=== PATIENT | male | born 1955 | race Caucasian/White ===

== ENCOUNTER 2024-09-07 14:53 | Emergency (ER) | payer MEDICARE, SELFPAY ==
[2024-09-07] VITALS (22 sets, daily range): BP systolic 93–148; BP diastolic 63–94; PULSE 76–105; RESP 16–18; TEMP 36.6–37.1; O2SAT 90–98
--- NOTE | ~2024-09-07 | CT_ITS ---
EXAMINATION: CT abdomen pelvis w con DATE: 09/07/2024 16:15 INDICATION: Rectal bleeding. Diarrhea. TECHNIQUE: Computed tomography (CT) of the abdomen and pelvis was performed with 100 mL Omnipaque 350 intravenous contrast. Automated exposure control and iterative reconstruction technique were employe d. The dose-length product was 829.47 mGy-cm. COMPARISON: None. FINDINGS: The visualized portions of lung bases demonstrate emphysema and minimal atelectasis. No ple ural effusion. The heart size is normal. No pericardial effusion. There are coronary artery calcifica tions. The liver, gallbladder, spleen, pancreas, adrenal glands, and left kidney are normal. There is a 10 mm cyst in right kidney. There is diverticulosis of the colon without evidence of diverticuliti s. The appendix is normal. The colon is decompressed. There are no dilated loops of bowel. There are no pathologically enlarged lymph nodes. There is no free intraperitoneal fluid. There is a left ingui nal hernia containing fat. There is severe lower lumbar spondylosis. There is mild chronic anterior w edging of T11-L1 vertebral bodies. IMPRESSION: 1. No etiology for the patient's symptoms. Reviewed, dictated and finalized at location A. [employer]IAL MAINTENANCE WORKER
[2024-09-07] MEDS: SODIUM CHLORIDE 0.9% IV 1,000 ML 999 ML IV CONT (15:29)
[2024-09-07 15:36] LABS: Basophils Absolute Auto 0.04 K/mm3 (0.00-0.10); Basophils Percent Auto 0.4 % (0.0-1.0); Eosinophils Absolute Auto 0.21 K/mm3 (0.02-0.50); Eosinophils Percent Auto 2.4 % (1.0-6.0); Hematocrit 44.7 % (37.0-46.0); Hemoglobin 14.6 g/dL (12.4-15.3); Immature Granulocyte Absolute 0.03 K/mm3 (0.00-0.00); Immature Granulocyte Percent A 0.3 % (0.0-0.0); Lymphocytes Absolute Auto 1.54 K/mm3 (1.10-4.50); Lymphocytes Percent Auto 17.3 % (18.0-42.0); Mean Corpuscular HGB Conc 32.7 g/dL (32-36); Mean Corpuscular Hemoglobin 28.9 pg (27.0-31.0); Mean Corpuscular Volume 88.5 fL (78.0-102.0); Mean Platelet Volume 9.2 fl (8.7-11.0); Monocytes Absolute Auto 0.84 K/mm3 (0.10-0.90); Monocytes Percent Auto 9.4 % (2.0-11.0); Neutrophils Absolute Auto 6.23 K/mm3 (1.70-7.20); Neutrophils Percent Auto 70.2 % (50.0-70.0); Platelet Count Result 189 K/mm3 (150-420); Red Blood Count 5.05 M/mm3 (4.70-6.10); Red Cell Distribution Width 15.3 % (11.6-14.4); White Blood Count 8.9 K/mm3 (4.8-10.8)
[2024-09-07 15:37] LABS: Occult Blood Positive (Negative)
[2024-09-07 15:47] LABS: Lipase 33 U/L (16-77); Magnesium 1.8 mg/dL (1.8-2.4)
[2024-09-07 15:52] LABS: Partial Thromboplastin Time 26.3 Sec (23.9-30.70); Prothrombin Time 10.9 Seconds (9.50-12.1)
[2024-09-07 15:53] LABS: Alanine Aminotransferase 38 U/L (16-63); Albumin Level 3.5 g/dL (3.4-5.0); Alkaline Phosphatase 78 U/L (46-116); Ammonia 10 umol/L (11-32); Anion Gap 11 mmol/L (4-12); Aspartate Amino Transferase 20 U/L (15-37); Bilirubin,Total 0.5 mg/dL (0.00-1.00); Blood Urea Nitrogen 19 mg/dL (7-18); Calcium 9.4 mg/dL (8.5-10.1); Carbon Dioxide 27 mmol/L (21-32); Chloride 105 mmol/L (98-108); Estimated CRCL calculation 61 ml/min; Estimated Glomerular Filt Rate > 60; Glucose 123 mg/dL (70-99); Osmolality Calculated 299 mOsm/kg (285-295); Potassium 4.2 mmol/L (3.5-5.1); Sodium 143 mmol/L (136-145)
[2024-09-07 15:59] LABS: Lactic Acid Reflex 1.4 mmol/L (0.4-2.0)
--- NOTE | 2024-09-07 16:11 | ECG_ITS ---
Test Date: 2024-09-07 16:40:32 Measurements Intervals [place] Rate: 87 P: 66 [place]: 141 QRS: 69 QRSD: 90 T: 70 QT: 353 QTc: 427 Interpretive Statements SINUS RHYTHM No previous ECG available for comparison Electronically Signed On 09-08-2024 14:12:53 CLOTH EXAMINER by Pernell Perez M.D.
--- NOTE | 2024-09-07 16:30 | ED_ITS ---
HPI - Abdominal Pain General Chief Complaint: Abdominal Pain Stated Complaint: rectal bleeding Time Seen by Provider: 09/07/24 15:06 Source: patient and family Mode of arrival: ambulatory Limitations: no limitations History of Present Illness HPI narrative: this is a 69-year-old male with a history of hypertension hyperlipidemia COPD and diabetes history of osteoarthritis has been on aspirin and etodolac. Patient presents with rectal bleeding with some diarrhea and crampy abdominal pain. Patient is afebrile vitals are stable there is no nausea or vomiting no chest pain or shortness of breath. Patient states that he was eating out at a restaurant yesterday and this morning had severe diarrhea and subsequent to that had extensive bright red blood per rectum. MD elicited complaint: abdominal pain Pertinent past history: gastrointestinal bleeding Onset (ago): hour(s) Pain Consistency: constant Severity: moderate Quality: cramping Migration to: periumbilical Exacerbating factors: bowel movement Related Data Allergies Allergy/AdvReac Type Severity Reaction Status Date / Time No Known Allergies Allergy Verified 09/07/24 15:03 Review of Systems 2 Review of Systems: All systems reviewed & are unremarkable except as noted in HPI and below PMFSH Past Medical History Medical History Diabetes mellitus HTN (hypertension) Family History Family History Other Cerebrovascular accident Diabetes mellitus Family history of alcoholism Family history of congestive heart failure Family history of lung cancer Family history of malignant neoplasm Hypertension Social History Social History Smoking status: Current every day smoker Alcohol intake: current Exam 2 Const: General: no acute distress and alert Nutritional Appearance: well nourished Orientation/consciousness: patient oriented x3 Limitations: no limitations Neck: Neck: normal visual inspection Chest: Chest palpation & inspection: normal inspection of the chest Resp: Effort & Inspection: normal respiratory effort Auscultation: clear to auscultation bilaterally Cardio: Rate: regular rate Rhythm: regular rhythm GI: GI Palp: Yes Soft to palpation and Yes Tenderness to palpation present (GI) : General: Yes bladder normal to palpation Urinary Catheter: Urinary Catheter: patent and draining Skin: General skin exam: normal color Rashes: no rashes Neuro: General: patient oriented x3 and moves all extremities Extrem: General: normal to inspection and no clubbing, cyanosis or edema Course Course Emergency Course: patient had a episode of bright red blood rectum and concur with stool occult, lower external hemorrhoids noted. Labs unremarkable with an H&H of 14 and 44. The patient did receive IV fluids CT scan performed shows no acute ideology for his rectal bleeding. Vitals are stable with a blood pressure 124/79 heart rate of 105 O2 sats 95% on room air. Vital Signs Vital signs: Vital Signs Temperature 36.6 C 09/07/24 14:55 Pulse Rate 105 H 09/07/24 14:55 Respiratory Rate 18 09/07/24 14:55 Blood Pressure 124/79 09/07/24 14:55 Pulse Oximetry 95 09/07/24 14:55 Oxygen Delivery Room Air 09/07/24 14:55 Temperature 36.6 C 09/07/24 14:55 Pulse Rate 105 H 09/07/24 14:55 Respiratory Rate 18 09/07/24 14:55 Blood Pressure 124/79 09/07/24 14:55 Pulse Oximetry 95 09/07/24 14:55 Oxygen Delivery Room Air 09/07/24 14:55 MDM - Abdominal Pain Lab Data 09/07/24 15:31 09/07/24 15:31 Labs: Lab Results 09/07/24 09/07/24 Range/Units 15:12 15:31 WBC 8.9 (4.8-10.8) K/mm3 RBC 5.05 (4.70-6.10) M/mm3 Hgb 14.6 (12.4-15.3) g/dL Hct 44.7 (37.0-46.0) % MCV 88.5 (78.0-102.0) fL MCH 28.9 (27.0-31.0) pg MCHC 32.7 (32-36) g/dL RDW 15.3 H (11.6-14.4) % Plt Count 189 (150-420) K/mm3 MPV 9.2 (8.7-11.0) fl Immature Gran % (Auto) 0.3 H (0.0-0.0) % Neut % (Auto) 70.2 H (50.0-70.0) % Lymph % (Auto) 17.3 L (18.0-42.0) % [place] % (Auto) 9.4 (2.0-11.0) % Eos % (Auto) 2.4 (1.0-6.0) % Baso % (Auto) 0.4 (0.0-1.0) % Lymph # (Auto) 1.54 (1.10-4.50) K/mm3 [place] # (Auto) 0.84 (0.10-0.90) K/mm3 Eos # (Auto) 0.21 (0.02-0.50) K/mm3 Baso # (Auto) 0.04 (0.00-0.10) K/mm3 Abs Immat Gran (auto) 0.03 H (0.00-0.00) K/mm3 Absolute Neuts (auto) 6.23 (1.70-7.20) K/mm3 Absolute Nucleated RBC 0.00 (0.00-0.00) K/mm3 Nucleated RBC % 0.0 (0-0.0) % PT 10.9 (9.50-12.1) Seconds INR 1.0 APTT 26.3 (23.9-30.70) Sec Sodium 143 (136-145) mmol/L Potassium 4.2 (3.5-5.1) mmol/L Chloride 105 (98-108) mmol/L Carbon Dioxide 27 (21-32) mmol/L Anion Gap 11 (4-12) mmol/L BUN 19 H (7-18) mg/dL Creatinine 1.11 (0.70-1.30) mg/dL Estim Creat Clear Calc 61 ml/min Estimated GFR > 60 (59 - ) Glucose 123 H (70-99) mg/dL Calculated Osmolality 299 H (285-295) mOsm/kg Lactic Acid 1.4 (0.4-2.0) mmol/L Calcium 9.4 (8.5-10.1) mg/dL Magnesium 1.8 (1.8-2.4) mg/dL Total Bilirubin 0.5 (0.00-1.00) mg/dL AST 20 (15-37) U/L ALT 38 (16-63) U/L Alkaline Phosphatase 78 (46-116) U/L Ammonia 10 L (11-32) umol/L Total Protein 7.0 (6.4-8.2) g/dL Albumin 3.5 (3.4-5.0) g/dL Lipase 33 (16-77) U/L Stool Occult Blood Positive A (Negative) Imaging Data Radiologist's impression: ITS Impressions Abdomen/Pelvis CT 09/07/24 16:21 IMPRESSION: 1. No etiology for the patient's symptoms. Critical Care Time Critical Care Time Critical Care Time: No Discharge Plan Discharge Clinical Impression: Rectal bleeding Patient Disposition: Acute Care Hospital Patient Language: Amharic Follow-up/Referrals: Gaviota Marsh MD [Primary Care Provider] -
--- NOTE | 2024-09-07 19:00 | PC.NURSE ---
ASSUMED CARE. REPORT RECEIVED FROM JESSICA HEIN.
--- NOTE | 2024-09-07 19:41 | PC.NURSE ---
PCS AND COBRA FORM SIGNED BY PATIENT, PLACED COPY ON CHART AND MADE COPY FOR EMS. CHART COPIED AND READY FOR EMS
--- NOTE | 2024-09-07 21:33 | PC.NURSE ---
PATIENT AMBULATED WITHOUT DIFFICULTY TO THE BATHROOM. LOADING UP ONTO EMS STRETCHER AFTER GOING TO BATHROOM. STEADY GAIT. A&O X 3. PERSONAL ITEMS GIVEN TO EMS. TRANSFER PACKET WITH COBRA AND PCS FORM GIVEN TO EMS.
== END 2024-09-07 21:35 | disposition short-term general hospital (02) ==
PROVIDERS: Emergency Provider Emergency Medicine; PCP Family Medicine
DX: K62.5 Hemorrhage of anus and rectum (principal); E78.5 Hyperlipidemia, unspecified; J44.9 Chronic obstructive pulmonary disease, unspecified; E11.9 Type 2 diabetes mellitus without complications; I10 Essential (primary) hypertension; F17.200 Nicotine dependence, unspecified, uncomplicated; Z79.82 Long term (current) use of aspirin
CPT/HCPCS: 36415; 74177; 80053; 82140; 82272; 83605; 83690; 83735; 85025; 85610; 85730; 93005; 96360; 99285; J7030; Q9967

== ENCOUNTER 2024-09-07 22:13 | Observation (INO) | payer MEDICARE, SELFPAY ==
--- NOTE | 2024-09-07 22:15 | P.HP_ITS ---
H&P: [facility] History of Present Illness Date/Time: 09/07/24 22:15 Chief Complaint: Diarrhea, Blood in Stool Narrative: 69 y/o M presents here with diarrhea and blood in his stool with PMH of HLD, hypertension, heart valve replacement, and COPD. The patient presented to [facility] on 09/07 for further evaluation of diarrhea and bright red blood in his stool.? He reports that he ate [place] food yester day evening for dinner.? Shortly thereafter he had an episode of large volume diarrhea.? Patient then developed bright red blood in his diarrhea, remained large volume and frequent.? He reports intermittent clots. Denies dark tarry stools.? He approximated that he has gone approximately 15 times in the last 24 hours.? Diarrhea is accompanied by abdominal pain.? He describes the pain as lower abdomen, crampy, non-radiating, intermittent, (duration), and has resolved.? He denies change in urinary output, nausea, vomiting, fever, chills, or body aches. ?The patient reports he had a colonoscopy performed in 2023.? At that time he had hemorrhoids removed.? Previous EGD done within the last 5 years, no significant findings per patient.? The patient reports he is/is not on anticoagulation.? He does take a aspirin daily. Initial VS at presentation: ?97.9? F, HR 105, RR 18, 124/79, and 95% on RA. ED workup showed: ?No leukocytosis, no anemia, normal coags, creatinine 1.11 and GFR >60, glucose 123, calculated osmolality 299, lactic 1.4, and stool occult positive.? CT of the abdomen/pelvis showed no etiology for the patient's symptoms. Review of Systems Review of Systems: All systems reviewed & are unremarkable except as noted in HPI and below [facility] Past Medical History Medical History (Updated 09/07/24 @ 23:01 by Jenifer Springer APRN) Arthritis COPD (chronic obstructive pulmonary disease) HLD (hyperlipidemia) HTN (hypertension) Surgical History Surgical History History of heart valve replacement Family History Family History Other Cerebrovascular accident Diabetes mellitus Family history of alcoholism Family history of congestive heart failure Family history of lung cancer Family history of malignant neoplasm Hypertension Social History Social History Smoking status: Current every day smoker Alcohol intake: current Meds Home Medications and Allergies Home Medications ?Medication ?Instructions ?Recorded ?Confirmed ?Type albuterol sulfate 90 mcg/actuation 2 inh inhalation Q4H PRN shortness 09/07/24 09/07/24 History aerosol inhaler of breath or wheezing amlodipine 5 mg tablet 2.5 mg PO DAILY 09/07/24 09/07/24 History atorvastatin 80 mg tablet 80 mg PO DAILY 09/07/24 09/07/24 History budesonide 160 mcg-glycopyr 9 2 inh inhalation BID 09/07/24 09/07/24 History mcg-formot 4.8 mcg/actuation HFA inhaler (Breztri Aerosphere) etodolac 400 mg tablet 400 mg PO Q12H 09/07/24 09/07/24 History metformin 500 mg tablet 500 mg PO DAILY 09/07/24 09/07/24 History sildenafil (pulm.hypertension) 20 20 mg PO Q24H PRN ED 09/07/24 09/07/24 History mg tablet Allergies Allergy/AdvReac Type Severity Reaction Status Date / Time No Known Allergies Allergy Verified 09/07/24 15:03 Exam Const: General: comfortable and no acute distress Other: , male, nontoxic appearance HENMT: Face/Nose/Sinus: Normal nares present Mouth: Yes moist mucous membranes Eyes: General: appearance normal, both eyes and all related structures Sclera: sclerae normal Pupils: Equal, round and reactive pupils present EOM: EOMs intact bilaterally Resp: Effort & Inspection: normal respiratory effort Auscultation: clear to auscultation bilaterally Cardio: Rate: regular rate Rhythm: regular rhythm Other: S1-S2 present without murmur, rub, ectopy GI: Other: abdomen mildly distended and modestly firm. no tenderness. normal bowel sounds in all quadrants. Bowel movement assessed, keren blood clot with minimal stool. Skin: General skin exam: normal color and no rashes or lesions noted Wounds : no wounds Neuro: Speech: normal speech Motor exam (neuro): 5/5 motor strength present throughout Sensory Exam: normal sensation Other: A/Ox4 Extrem: General: normal to inspection Psych: Mental Status: mental status grossly normal Affect: normal affect Other: good insight and judgement, pleasant Assessment and Plan Assessment and plan (1) Rectal bleeding: Code(s): K62.5 - Hemorrhage of anus and rectum Status: Acute Assessment and Plan: - Hgb 14.6 - stool occult positive - not on anticoagulation.? hold home medication: - CT abd/pelvis: ?No etiology for patient's symptoms - GI consulted, awaiting recs - trend H&H Q4-6 hour - started on pantoprazole IVP - last colonoscopy 2-3 months ago, hemoorhoids removed - last EGD within the last 5 years - monitor hemodynamic stability and telemetry (2) HTN (hypertension): Qualifiers: Hypertension type: primary hypertension Qualified Code(s): I10 - Essential (primary) hypertension Code(s): I10 - Essential (primary) hypertension Status: Acute Assessment and Plan: - chronic, currently 115/56 - continue home medications: amlodipine - monitor Plan Patient states he is not diabetic or prediabetic. On metformin for weight loss. Will check A1C, hypoglycemia protocol in place. Diet: NPO -> Clear liquids GI Prophylaxis: Pantoprazole DVT Prophylaxis: SCDs Lines: Peripheral Code Status: Full code Quality VTE Prophylaxis VTE prophylaxis: mechanical ordered Hospitalist MIPS Advance Care Plan I have confirmed that the patient's Advanced Care Plan is present, code status is documented, or surrogate decision maker is listed in patient medical record.: Yes Medication Reconciliation I have utilized all available resources to obtain, update and review the patients current medications (includes all prescriptions, OTC, herbals, cannabis, and nutritional supplements).: Yes
[2024-09-07 22:36] VITALS: BMI 31.4
[2024-09-07 22:52] VITALS: BP 115/56; PULSE 88; RESP 20; TEMP 36.9; O2SAT 96
[2024-09-07] MEDS: LACTATED RINGERS 1,000 ML 100 ML IV CONT (23:45)
[2024-09-07 23:56] LABS: Hematocrit 41.4 % (42.0-52.0); Hemoglobin 13.4 g/dL (14.0-18.0)
[2024-09-08] VITALS: PULSE 83
[2024-09-08 04:00] VITALS: PULSE 67
[2024-09-08 06:00] VITALS: BP 113/79; PULSE 95; RESP 16; TEMP 36.8; O2SAT 94
[2024-09-08 07:22] LABS: Basophils Absolute Auto 0.1 K/mm3 (0.0-0.1); Basophils Percent Auto 0.9 % (0.2-1.2); Eosinophils Absolute Auto 0.3 K/mm3 (0-0.3); Eosinophils Percent Auto 4.1 % (0-4.4); Hematocrit 42.9 % (42.0-52.0); Hemoglobin 13.5 g/dL (14.0-18.0); Immature Granulocyte Absolute 0.02 K/mm3 (0.00-0.031); Immature Granulocyte Percent A 0.3 % (0-0.5); Lymphocytes Absolute Auto 1.92 K/mm3 (0.9-3.2); Lymphocytes Percent Auto 24.7 % (18.3-44.2); Mean Corpuscular HGB Conc 31.5 g/dl (32-36); Mean Corpuscular Volume 92.1 fl (80-100); Mean Platelet Volume 9.8 fl (7.4-10.4); Monocytes Absolute Auto 0.7 K/mm3 (0.1-0.6); Monocytes Percent Auto 8.4 % (2.6-8.5); Neutrophils Absolute Auto 4.8 K/mm3 (1.3-6.7); Neutrophils Percent Auto 61.6 % (45.5-73.1); Platelet Count Result 164 k/mm3 (150-375); Red Blood Count 4.66 M/mm3 (4.6-6.20); Red Cell Distribution Width 15.5 % (11.5-14.5); White Blood Count 7.8 K/mm3 (4.5-10.0)
[2024-09-08 07:31] LABS: Alanine Aminotransferase 26 U/L (6-50); Albumin Level 3.4 g/dL (3.5-5.1); Alkaline Phosphatase 71 U/L (38-126); Anion Gap 2 mmol/L (4-12); Aspartate Amino Transferase 26 U/L (17-59); Bilirubin,Total 0.7 mg/dL (0.2-1.3); Blood Urea Nitrogen 14 mg/dL (9-20); Calcium 8.9 mg/dL (8.4-10.2); Carbon Dioxide 32 mmol/L (22-30); Chloride 106 mmol/L (98-107); Estimated CRCL calculation 76 ml/min; Estimated Glomerular Filt Rate > 60; Glucose 110 mg/dL (65-110); Hemoglobin A1C 6.1 % (<5.7); Potassium 4.4 mmol/L (3.4-5.0); Sodium 140 mmol/L (137-145)
[2024-09-08 08:02] VITALS: PULSE 88
[2024-09-08] MEDS: PANTOPRAZOLE SODIUM IV 40 MG VIAL IV PUSH (09:07)
[2024-09-08] MEDS: FLUTICASONE/UMECLIDIN/VILANTER 100-62.5-25 MCG ELLIPTA 1 PUFF INHALATION (10:03)
[2024-09-08 10:47] LABS: Glucose Point of Care 111 mg/dl (65-105)
[2024-09-08 11:52] LABS: Glucose Point of Care 117 mg/dl (65-105)
--- NOTE | 2024-09-08 12:00 | PM.IMPN ---
Progress Note: A&P Assessment and Plan (1) HTN (hypertension): Qualifiers: Hypertension type: primary hypertension Qualified Code(s): I10 - Essential (primary) hypertension Code(s): I10 - Essential (primary) hypertension Status: Acute (2) Acute GI bleeding: Code(s): K92.2 - Gastrointestinal hemorrhage, unspecified Status: Acute Plan 69 y/o M presents here with diarrhea and blood in his stool with PMH of HLD, hypertension, heart valve replacement, and COPD. presented to [facility] on 09/07 for further evaluation of diarrhea and bright red blood in his stool.? ? Diarrhea is accompanied by abdominal pain.? He describes the pain as lower abdomen, crampy, non-radiating, intermittent, (duration), and has resolved.? He denies change in urinary output, nausea, vomiting, fever, chills, or body aches. ?The patient reports he had a colonoscopy performed in 2023.? At that time he had hemorrhoids removed.? Previous EGD done within the last 5 years, no significant findings per patient.? The patient reports he is/is not on anticoagulation.? He does take a aspirin daily. (1) Rectal bleeding: Code(s): K62.5 - Hemorrhage of anus and rectum Status: Acute Assessment and Plan: - Hgb 14.6 - stool occult positive - not on anticoagulation.? hold home medication: - CT abd/pelvis: ?No etiology for patient's symptoms - GI consulted, awaiting recs - trend H&H Q4-6 hour - started on pantoprazole IVP - last colonoscopy 2-3 months ago, hemoorhoids removed - last EGD within the last 5 years - monitor hemodynamic stability and telemetry Now patient is a hemodynamically stable, hemoglobin dropped slightly 13.5. Discussed case with GI, appreciate GI consultation, suspecting hemorrhoid. GI recommend consult general surgeon for evaluation treatment HTN (hypertension): Qualifiers: Hypertension type: primary hypertension Qualified Code(s): I10 - Essential (primary) hypertension Code(s): I10 - Essential (primary) hypertension Status: Acute Assessment and Plan: - chronic, currently 115/56 - continue home medications: amlodipine 2.5 mg b.i.d. p.o. history of COPD No exacerbation No O2 desaturation Continue home medication Breztri 2 puffs b.i.d. Continue albuterol nebulizer q.4 hours p.r.n. O2 therapy p.r.n. - monitor DM Patient states he is not diabetic or prediabetic. On metformin for weight loss. A1C 6.1,fasting glucose 111 GI Prophylaxis: Pantoprazole DVT Prophylaxis: SCDs Lines: Peripheral Code Status: Full code Subjective Date/time seen: 09/08/24 12:00 Interval history: I saw exam patient today, patient denies abdomen pain, patient also denies bleeding p.o. patient denies nausea vomiting black emesis. Patient is afebrile, blood pressure stable, hemoglobin stable Exam Narrative: GENERAL: Pleasant, in no acute distress. Well-nourished. - EYES: EOMI. Anicteric. - HENT: Moist mucous membranes. - LUNGS: Clear to auscultation bilaterally, no wheezing, rhonchi, or rales. - CARDIOVASCULAR: Regular rate and rhythm. No murmur. No JVD. - ABDOMEN: Soft, non-tender and non-distended. No palpable masses. - EXTREMITIES: No edema. Peripheral pulses 2+. Non-tender. - NEUROLOGIC: No focal neurological deficits. CN II-XII grossly intact. - PSYCHIATRIC: Awake, Alert and oriented x 3. Appropriate mood and affect. - SKIN: No rashes or lesions. Warm. - LYMPH: No cervical lymphadenopathy. Objective Data Vital Signs Vital Signs: Vital Signs - 24 hr 09/07/24 22:52 09/07/24 23:47 09/08/24 00:00 Temperature 98.5 F Pulse Rate 88 83 Respiratory Rate 20 Blood Pressure 115/56 L Pulse Oximetry 96 Oxygen Delivery Room Air 09/08/24 04:00 09/08/24 06:00 09/08/24 08:02 Temperature 98.3 F Pulse Rate 67 95 88 Respiratory Rate 16 Blood Pressure 113/79 Pulse Oximetry 94 Oxygen Delivery Meds/Results Medications: Active Medications Generic Name Dose Route Start Last Admin Trade Name Freq PRN Reason Stop Dose Admin Acetaminophen 650 mg 09/07/24 23:03 Acetaminophen 325 Mg Tablet PO Q6H PRN Mild Pain (1-3) or Fever Hydrocodone Bitart/Acetaminophen 1 tab 09/07/24 23:03 Hydrocodone/Acetaminophen (*Crx) 5-325 Mg Tablet PO Q6H PRN Pain Rated 4-6 Albuterol 2 puff 09/07/24 23:02 Albuterol Sulfate (*Sp) Aerosol 1 Puff INHALATION Q4H PRN shortness of breath or wheezing Amlodipine Besylate 2.5 mg 09/08/24 09:00 09/08/24 09:14 Amlodipine Besylate 2.5 Mg Tablet PO Not Given DAILY MARJORIE Atorvastatin Calcium 80 mg 09/08/24 09:00 09/08/24 09:14 Atorvastatin 40 Mg Tablet PO Not Given DAILY MARJORIE Dextrose 12.5 gm 09/07/24 23:03 Dextrose 50% 25 Gm/50 Ml Syringe IV PUSH PRN PRN Hypoglycemia Protocol Fluticasone/Umeclidinium/Vilanterol 1 puff 09/08/24 09:00 09/08/24 10:03 Fluticasone/Umeclidin/Vilanter 100-62.5-25 Mcg Ellipta INHALATION 1 puff BID MARJORIE Administration Glucagon 1 mg 09/07/24 23:03 Glucagon For Inj 1 Mg Vial IM PRN PRN Hypoglycemia Protocol Glucose 15 gm 09/07/24 23:03 Glucose Oral Gel 15 Gm Of Glucse In 37.5 Gm Tube PO PRN PRN Hypoglycemia Protocol Lactated Ringer's 1,000 mls @ 100 mls/hr 09/07/24 22:20 09/07/24 23:45 Lr - Lactated Ringers Iv IV CONT 100 mls/hr .Q10H MARJORIE Administration Dextrose 1,000 mls @ 100 mls/hr 09/07/24 23:03 Dextrose 5% 1,000 Ml IVPB PRN PRN Hypoglycemia Protocol Insulin Aspart 2 - 5 units 09/08/24 08:00 09/08/24 08:14 Insulin Aspart (*Bkc) 100 Units/Ml SUB-Q Not Given TIDWM MARJORIE Protocol Metformin HCl 500 mg 09/08/24 09:00 09/08/24 09:14 Metformin Hcl 500 Mg Tablet PO Not Given DAILY [facility] Miscellaneous Information 1 each 09/07/24 00:01 09/08/24 03:27 Nonformulary Drug (Etodolac 400 Mg Tablet) Is Non Formylary Can Patient Use From Home? XX 10/07/24 00:00 Not Given CLARIFY MARJORIE Non-Formulary Medication 400 mg 09/07/24 23:15 Etodolac PO 10/07/24 23:14 Q12H MARJORIE Ondansetron HCl 4 mg 09/07/24 23:03 Ondansetron Inj 4 Mg/2 Ml Vial IV PUSH Q6H PRN Nausea And Vomiting Pantoprazole Sodium 40 mg 09/08/24 09:00 09/08/24 09:07 Pantoprazole Sodium Iv 40 Mg Vial IV PUSH 40 mg Q12HR MARJORIE Administration Labs Labs: Laboratory Results - last 24 hr 09/07/24 09/08/24 09/08/24 23:48 06:44 07:45 WBC 7.8 RBC 4.66 Hgb 13.4 L 13.5 L Hct 41.4 L 42.9 MCV 92.1 MCH 29.0 MCHC 31.5 L RDW 15.5 H Plt Count 164 MPV 9.8 Immature Gran % (Auto) 0.3 Neut % (Auto) 61.6 Lymph % (Auto) 24.7 [place] % (Auto) 8.4 Eos % (Auto) 4.1 Baso % (Auto) 0.9 Lymph # (Auto) 1.92 [place] # (Auto) 0.7 H Eos # (Auto) 0.3 Baso # (Auto) 0.1 Abs Immat Gran (auto) 0.02 Absolute Neuts (auto) 4.8 Absolute Nucleated RBC 0.000 Nucleated RBC % 0.0 Sodium 140 Potassium 4.4 Chloride 106 Carbon Dioxide 32 H Anion Gap 2 L BUN 14 Creatinine 0.90 Estim Creat Clear Calc 76 Estimated GFR > 60 Glucose 110 POC Capillary Glucose 111 H Hemoglobin A1c 6.1 H Calcium 8.9 Total Bilirubin 0.7 AST 26 ALT 26 Alkaline Phosphatase 71 Total Protein 6.0 L Albumin 3.4 L 09/08/24 11:40 WBC RBC Hgb Hct MCV MCH MCHC RDW Plt Count MPV Immature Gran % (Auto) Neut % (Auto) Lymph % (Auto) [place] % (Auto) Eos % (Auto) Baso % (Auto) Lymph # (Auto) [place] # (Auto) Eos # (Auto) Baso # (Auto) Abs Immat Gran (auto) Absolute Neuts (auto) Absolute Nucleated RBC Nucleated RBC % Sodium Potassium Chloride Carbon Dioxide Anion Gap BUN Creatinine Estim Creat Clear Calc Estimated GFR Glucose POC Capillary Glucose 117 H Hemoglobin A1c Calcium Total Bilirubin AST ALT Alkaline Phosphatase Total Protein Albumin
[2024-09-08 12:02] VITALS: PULSE 80
[2024-09-08 14:00] VITALS: BP 136/92; PULSE 80; RESP 18; TEMP 36.4; O2SAT 95
--- NOTE | 2024-09-08 15:02 | P.DS_ITS ---
DS: Admitting Diagnosis Discharge Date 09/18/24 Admitting Diagnosis (1) HTN (hypertension): Qualifiers: Hypertension type: primary hypertension Qualified Code(s): I10 - Essential (primary) hypertension Code(s): I10 - Essential (primary) hypertension Status: Acute (2) Acute GI bleeding: Code(s): K92.2 - Gastrointestinal hemorrhage, unspecified DS: Discharge Diagnosis Discharge Diagnosis (1) HTN (hypertension): Qualifiers: Hypertension type: primary hypertension Qualified Code(s): I10 - Essential (primary) hypertension Code(s): I10 - Essential (primary) hypertension Status: Acute (2) Acute GI bleeding: Code(s): K92.2 - Gastrointestinal hemorrhage, unspecified Status: Acute DS: Summary Hospital Course Hospital Course: 69 y/o M presents here with diarrhea and blood in his stool with PMH of HLD, hypertension, heart valve replacement, and COPD. presented to [facility] on 09/07 for further evaluation of diarrhea and bright red blood in his stool.? ? Diarrhea is accompanied by abdominal pain.? He describes the pain as lower abdomen, crampy, non-radiating, intermittent, (duration), and has resolved.? He denies change in urinary output, nausea, vomiting, fever, chills, or body aches. ?The patient reports he had a colonoscopy performed in 2023.? At that time he had hemorrhoids removed.? Previous EGD done within the last 5 years, no significant findings per patient.? The patient reports he is/is not on anticoagulation.? He does take a aspirin daily. The following med issues have been addressed during hospitalization Rectal bleeding: Code(s): K62.5 - Hemorrhage of anus and rectum Status: Acute Assessment and Plan: - Hgb 14.6 - stool occult positive - not on anticoagulation.? hold home medication: - CT abd/pelvis: ?No etiology for patient's symptoms - GI consulted, awaiting recs - trend H&H Q4-6 hour - started on pantoprazole IVP - last colonoscopy 2-3 months ago, hemoorhoids removed - last EGD within the last 5 years - monitor hemodynamic stability and telemetry Now patient is a hemodynamically stable, hemoglobin dropped slightly 13.5. Discussed case with GI, appreciate GI consultation, suspecting hemorrhoid. GI recommend consult general surgeon for evaluation treatment Appreciate general surgeon consultation, [facility] considers no indication of surgical treatment, rec to dc pt home rec pt stop taking aspirin HTN (hypertension): Qualifiers: Hypertension type: primary hypertension Qualified Code(s): I10 - Essential (primary) hypertension Code(s): I10 - Essential (primary) hypertension Status: Acute Assessment and Plan: - chronic, currently 115/56 - continue home medications: amlodipine 2.5 mg b.i.d. p.o. history of COPD No exacerbation No O2 desaturation Continue home medication Breztri 2 puffs b.i.d. Continue albuterol nebulizer q.4 hours p.r.n. O2 therapy p.r.n. - monitor now on room air DM Patient states he is not diabetic or prediabetic. On metformin for weight loss. A1C 6.1,fasting glucose 111 GI Prophylaxis: Pantoprazole DVT Prophylaxis: SCDs Lines: Peripheral Code Status: Full code Time Spent with Patient Time attestation: Total time spent providing and/or coordinating discharge services: Exam Narrative: GENERAL: Pleasant, in no acute distress. Well-nourished. - EYES: EOMI. Anicteric. - HENT: Moist mucous membranes. - LUNGS: Clear to auscultation bilateral ly, no wheezing, rhonchi, or rales. - CARDIOVASCULAR: Regular rate and rhyth m. No murmur. No JVD. - ABDOMEN: Soft, non-tender and non-dist ended. No palpable masses. - EXTREMITIES: No edema. Peripheral puls es 2+. Non-tender. - NEUROLOGIC: No focal neurological defi cits. CN II-XII grossly intact. - PSYCHIATRIC: Awake, Alert and oriented x 3. Appropriate mood and affect. - SKIN: No rashes or lesions. Warm. - LYMPH: No cervical lymphadenopathy. DS: Data Data Completed and Pending Labs on day of discharge: Labs from last 24 hours 09/08/24 09/08/24 09/08/24 11:40 07:45 06:44 WBC 7.8 RBC 4.66 Hgb 13.5 L Hct 42.9 MCV 92.1 MCH 29.0 MCHC 31.5 L RDW 15.5 H Plt Count 164 MPV 9.8 Immature Gran % (Auto) 0.3 Neut % (Auto) 61.6 Lymph % (Auto) 24.7 Nobles % (Auto) 8.4 Eos % (Auto) 4.1 Baso % (Auto) 0.9 Lymph # (Auto) 1.92 Nobles # (Auto) 0.7 H Eos # (Auto) 0.3 Baso # (Auto) 0.1 Abs Immat Gran (auto) 0.02 Absolute Neuts (auto) 4.8 Absolute Nucleated RBC 0.000 Nucleated RBC % 0.0 Sodium 140 Potassium 4.4 Chloride 106 Carbon Dioxide 32 H Anion Gap 2 L BUN 14 Creatinine 0.90 Estim Creat Clear Calc 76 Estimated GFR > 60 Glucose 110 POC Capillary Glucose 117 H 111 H Hemoglobin A1c 6.1 H Calcium 8.9 Total Bilirubin 0.7 AST 26 ALT 26 Alkaline Phosphatase 71 Total Protein 6.0 L Albumin 3.4 L 09/07/24 23:48 WBC RBC Hgb 13.4 L Hct 41.4 L MCV MCH MCHC RDW Plt Count MPV Immature Gran % (Auto) Neut % (Auto) Lymph % (Auto) Nobles % (Auto) Eos % (Auto) Baso % (Auto) Lymph # (Auto) Nobles # (Auto) Eos # (Auto) Baso # (Auto) Abs Immat Gran (auto) Absolute Neuts (auto) Absolute Nucleated RBC Nucleated RBC % Sodium Potassium Chloride Carbon Dioxide Anion Gap BUN Creatinine Estim Creat Clear Calc Estimated GFR Glucose POC Capillary Glucose Hemoglobin A1c Calcium Total Bilirubin AST ALT Alkaline Phosphatase Total Protein Albumin Discharge Plan Discharge Attending physician on discharge: Beni Dumont Consulting providers: Bin Ruggiero Discharging Clinician: roge Anticipated Discharge Date/Time: 09/08/24 15:06 Patient Disposition: Home, Self-Care Activity: as tolerated Diet: as tolerated and high fiber Patient Instructions: Antibiotic Form Patient Language: Jordanian Stand Alone Forms: General Discharge Information Follow-up/Referrals: Gaviota Marsh MD [Primary Care Provider] - (See PCP in 1 week) Discharge Medications: Continued atorvastatin 80 mg tablet 80 mg PO DAILY Breztri Aerosphere 160-9-4.8 mcg/actuation HFA aerosol inhaler 2 inh INHALATION BID etodolac 400 mg tablet 400 mg PO Q12H albuterol sulfate 90 mcg/actuation HFA aerosol inhaler 2 inh INHALATION Q4H PRN (Reason: shortness of breath or wheezing) amlodipine 5 mg tablet 2.5 mg PO DAILY metformin 500 mg tablet 500 mg PO DAILY sildenafil (pulm.hypertension) 20 mg tablet 20 mg PO Q24H PRN (Reason: ED) Date of admission: 09/07/24 22:13 Primary Care Provider: Gaviota Marsh Admitting Provider: Beni Dumont Attending physician on admission: Beni Dumont Condition: Stable
--- NOTE | 2024-09-08 15:30 | P.CONGI_ITS ---
Assessment and Plan Assessment and plan (1) Bright red rectal bleeding: Code(s): K62.5 - Hemorrhage of anus and rectum Status: Acute Assessment and Plan: the patient is most likely source of bleeding in the context of an acute gastroenteritis is hemorrhoidal bleeding. Of note, hemorrhoids were not visible during the last colonoscopy 3 months ago, however this can be exacerbated during an acute episode of diarrhea. Surgical consultation appreciated, not considered a candidate for intervention. He is advised to have a bland diet and if bleeding persists will require surgery Re-evaluation. GI Consult Note Consult date/time: 09/08/24 15:30 HPI: Roel Lamb Sr. is a 69 year old male Who underwent a colonoscopy in May 2024, showing diverticulosis, a few small polyps. He was in his usual state of health until 48 hours ago when he experienced severe diarrhea episodes, at least 8-10 per day, and yesterday he noticed the passage of bright red blood per rectum with each bowel movement. He denies fever, abdominal pain, or other symptoms. He was hospitalized and currently he states that diarrhea frequency has decreased as well as improving stool consistency. Review of Systems 2 Review of Systems: All systems reviewed & are unremarkable except as noted in HPI and below PMFSH Past Medical History Medical History (Updated 09/08/24 @ 15:32 by Bin Ruggiero MD) Arthritis COPD (chronic obstructive pulmonary disease) HLD (hyperlipidemia) HTN (hypertension) Surgical History Surgical History History of heart valve replacement Family History Family History Other Cerebrovascular accident Diabetes mellitus Family history of alcoholism Family history of congestive heart failure Family history of lung cancer Family history of malignant neoplasm Hypertension Social History Social History Smoking status: Current every day smoker Alcohol intake: current Drinks per week: 20 Substance use: current Substance use type: marijuana Do You Feel Safe in your Home?: Yes Lack of Transportation: No Lack of Food: Never True Current Housing: I Have Housing Concerned About Future Housing: No Difficulty Paying Gas/Electric Bills: No Difficulty Paying for Meds: No Currently Unemployed: No Education: High School Diploma/GED Difficulty w/ Childcare or Family Care: No Spiritual care concerns: No Meds Home Medications and Allergies Home Medications ?Medication ?Instructions ?Recorded ?Confirmed ?Type albuterol sulfate 90 mcg/actuation 2 inh inhalation Q4H PRN shortness 09/07/24 09/07/24 History aerosol inhaler of breath or wheezing amlodipine 5 mg tablet 2.5 mg PO DAILY 09/07/24 09/07/24 History atorvastatin 80 mg tablet 80 mg PO DAILY 09/07/24 09/07/24 History budesonide 160 mcg-glycopyr 9 2 inh inhalation BID 09/07/24 09/07/24 History mcg-formot 4.8 mcg/actuation HFA inhaler (Breztri Aerosphere) etodolac 400 mg tablet 400 mg PO Q12H 09/07/24 09/07/24 History metformin 500 mg tablet 500 mg PO DAILY 09/07/24 09/07/24 History sildenafil (pulm.hypertension) 20 20 mg PO Q24H PRN ED 09/07/24 09/07/24 History mg tablet Allergies Allergy/AdvReac Type Severity Reaction Status Date / Time No Known Allergies Allergy Verified 09/07/24 15:03 Vital Signs Vital Signs - 24 hr 09/07/24 22:52 09/07/24 23:47 09/08/24 00:00 Temperature 98.5 F Pulse Rate 88 83 Respiratory Rate 20 Blood Pressure 115/56 L Pulse Oximetry 96 Oxygen Delivery Room Air 09/08/24 04:00 09/08/24 06:00 09/08/24 08:02 Temperature 98.3 F Pulse Rate 67 95 88 Respiratory Rate 16 Blood Pressure 113/79 Pulse Oximetry 94 Oxygen Delivery 09/08/24 12:02 09/08/24 14:00 Temperature 97.6 F Pulse Rate 80 80 Respiratory Rate 18 Blood Pressure 136/92 H Pulse Oximetry 95 Oxygen Delivery Exam 2 Narrative: GENERAL: Pleasant, in no acute distress. Well-nourished. - EYES: EOMI. Anicteric. - HENT: Moist mucous membranes. - LUNGS: Clear to auscultation bilateral ly, no wheezing, rhonchi, or rales. - CARDIOVASCULAR: Regular rate and rhyth m. No murmur. No JVD. - ABDOMEN: Soft, non-tender and non-dist ended. No palpable masses. - EXTREMITIES: No edema. Peripheral puls es 2+. Non-tender. - NEUROLOGIC: No focal neurological defi cits. CN II-XII grossly intact. - PSYCHIATRIC: Awake, Alert and oriented x 3. Appropriate mood and affect. - SKIN: No rashes or lesions. Warm. - LYMPH: No cervical lymphadenopathy. A NAL INSPECTION : No fissures, or external hemorroids Results Labs 09/08/24 06:44 09/08/24 06:44 Labs: Short CBC 09/07/24 09/08/24 Range/Units 23:48 06:44 WBC 7.8 (4.5-10.0) K/mm3 Hgb 13.4 L 13.5 L (14.0-18.0) g/dL Hct 41.4 L 42.9 (42.0-52.0) % Plt Count 164 (150-375) k/mm3 BMP 09/08/24 06:44 Sodium 140 Potassium 4.4 Chloride 106 Carbon Dioxide 32 H BUN 14 Creatinine 0.90 Glucose 110 Calcium 8.9 Liver Function 09/08/24 Range/Units 06:44 Total Bilirubin 0.7 (0.2-1.3) mg/dL AST 26 (17-59) U/L ALT 26 (6-50) U/L Alkaline Phosphatase 71 (38-126) U/L Albumin 3.4 L (3.5-5.1) g/dL
--- OUTSIDE RECORDS SUMMARY | 2024-09-14 04:30 | XMS_ITS | Referral Summary ---
Author Organization [facility] Address [address] [place] [address] Care Team Providers Care Shop Girl Name Role Phone Gaviota Marsh MD Primary Care Provider [phone] Encounters Date Type Department Care Team Description 09/12/2024 Telephone [facility] Cardiology [address] [place] [address] [place] [address] Nico Woody MD from Last 3 Months Allergies No known active allergies Medications aspirin 325 mg tablet Take 1 tablet (325 mg total) by mouth as needed 7 Active omeprazole (PriLOSEC) 20 mg capsule as needed 4 Active atorvastatin (LIPITOR) 40 mg tablet Take 1 tablet (40 mg total) by mouth daily 90 tablet 3 0 Active albuterol HFA (PROVENTIL HFA,VENTOLIN HFA,PROAIR HFA) 90 mcg/actuation inhaler USE 1 PUFF BY MOUTH EVERY 4 HOURS NEEDED FOR SHORTNESS OF BREATH OR WHEEZING 0 Active Wixela Inhub 250-50 mcg/dose diskus inhaler Inhale 1 puff 2 (two) times a day 0 Active azelastine (ASTELIN) 137 mcg (0.1 %) nasal spray USE 1 SPRAY IN EACH NOSTRIL EVERY 12 HOURS 3 Active Breztri Aerosphere 160-9-4.8 mcg/actuation inhaler Inhale 2 puffs 2 (two) times a day 4 Active metFORMIN (GLUCOPHAGE) 500 mg tablet 4 Active amLODIPine (NORVASC) 5 mg tablet Take 1 tablet (5 mg total) by mouth daily 30 tablet 11 4 01/18/20 25 Active Active Problems Problem Noted Date Diagnosed Date Coronary artery disease 09/23/2021 Tobacco use 09/23/2021 Obesity 09/23/2021 Hyperlipidemia 03/21/2015 Aortic valve stenosis 06/22/2014 Social History Tobacco Use Types Packs/Day Years Used Date Smoking Tobacco: Every Day Smokeless Tobacco: Never Tobacco Cessation:Ready to Q uit: Not Asked; Counseling Given: Not Answered Comments:5 cigs daily Alcohol Use Standard Drinks/Week Comments Yes 0 (1 standard drink = 0.6 oz pur e alcohol) Personal Safety Answer Date Recorded Getting School Help Needed Not on file 10/15 Sex and Gender Information Value Date Recorded Sex Assigned at Not on file 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 Gender Identity Not on file Sexual Orientation Not on file Last Filed Vital Signs Vital Sign Reading Time Taken Comments Blood Pressure 152/98 01/18/2024 10:46 AM CDT Pulse 57 01/18/2024 10:46 AM CDT Temperature 36.3 ??C (97.3 ??F) 09/06/2020 10:[address] Respiratory Rate - - Oxygen Saturation 96% 01/18/2024 10:46 AM CDT Inhaled Oxygen Concentration - - Weight 93.9 kg (207 lb) 01/18/2024 10:46 AM CDT Height 170.2 cm (5' 7.01 ) 01/18/2024 10:46 AM C DT Body Mass Index 32.41 01/18/2024 10:46 AM CDT Plan of Treatment Not on file Insurance [employer] MEDICARE [employer] MEDICARE [employer] Member Subscriber Plan / Payer (Ef fective 2022-Present) Name:Roel Lamb Relation to Subscriber:Self Name:Roel Lamb Payer ID:[id number] (NAIC) Type:[facility] MEDICARE Address: [place] [phone] Care Teams Shop Girl Relationship Specialty Start Date End Date Gaviota Marsh MD PCP - General 04/25/14
--- OUTSIDE RECORDS SUMMARY | 2024-09-14 04:30 | XMS_ITS | Clinical Summary ---
Author Organization [facility] Address [address] [place] [address] Care Team Providers Care Fire Code Inspector Name Role Phone Gaviota Marsh MD Primary Care Provider [phone] Allergies No known active allergies Medications aspirin [...] 09/23/2021 Hyperlipidemia 03/21/2015 Aortic valve stenosis 06/22/2014 Encounters Date Type Department Care Team Description 09/12/2024 Telephone [facility] Cardiology [address] [place] [address] [place] [address] Nico Woody MD from Last 3 Months Family History Medical History Relation Name Comments Cancer Father Family history of cancer - (Added by TW Conv) Coronary artery disease Father Fami ly history of coronary artery disease - (Added by TW Conv) Heart attack Father Family history of heart attack - (Added by TW Conv) Hypertension Father Family history of hypertension - (Added by TW Conv) Lung disease Father Family history of lung disease - (Added by TW Conv) Relation Name Status Comments Father Social History Tobacco Use Types Packs/Day Years [...] on file 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 Gender Identity Not on file Sexual Orientation Not on file Obstetrics History Last Filed Vital Signs Vital Sign Reading [...] 01/18/2024 10:46 AM CDT Plan of Treatment Health Maintenance Due Date Last Done Comments Colon Cancer Screening-Colonoscopy 1955 Depression Screening 1955 Fall Risk Assessment 1955 Hepatitis C Screening 1955 Prostate Cancer Screening-PSA 1955 Pneumococcal vaccine 65+ (1 of 2 - PCV) 1961 Hepatitis B Screening 1973 Zoster Vaccine (1 of 2) 2005 Abdominal Aortic Aneurysm (AAA) Screen 2020 Well Visit 65+ 2020 Influenza Vaccine (#1) 2024 DTaP/Tdap/Td Vaccine (2 - Td or Tdap) 10/06/2027 Insurance [employer] Care Teams Fire Code Inspector Relationship Specialty Start Date End Date Gaviota Marsh MD PCP - General 04/25/14
== END 2024-09-08 15:17 | disposition home or self-care (01) ==
PROVIDERS: Student in an Organized Health Care Education/Training Program; Admitting Provider Hospitalist; PCP Family Medicine; Visit Provider Hospitalist
DX: K62.5 Hemorrhage of anus and rectum (principal); I10 Essential (primary) hypertension; E78.5 Hyperlipidemia, unspecified; J44.9 Chronic obstructive pulmonary disease, unspecified; M19.90 Unspecified osteoarthritis, unspecified site; F17.200 Nicotine dependence, unspecified, uncomplicated; Z95.2 Presence of prosthetic heart valve; Z79.82 Long term (current) use of aspirin; Z79.51 Long term (current) use of inhaled steroids; Z79.84 Long term (current) use of oral hypoglycemic drugs; Z79.899 Other long term (current) drug therapy
CPT/HCPCS: 36415; 80053; 82948; 83036; 85014; 85018; 85025; 87045; 87427; 87449; 94640; 96361; 96374; A9270; G0378; J2470; J7120